=== PATIENT | male | born 1985 | race Caucasian/White ===

== ENCOUNTER 2020-12-08 19:45 | Emergency (ER) | payer OTHER ==
[2020-12-08] MEDS ORDERED: BACTRIM 400-801 EACH PO (20:33)
[2020-12-08] MEDS ORDERED: CEPHALEXIN500 MG PO (20:33)
== END 2020-12-08 20:35 | disposition home or self-care (01) ==
LOC: ER1 19:45
DX: L03.115 Cellulitis of right lower limb (principal)
CPT/HCPCS: 99283

== ENCOUNTER 2022-01-01 08:30 | Observation (INO) | payer OTHER ==
[~2022-01-01] VITALS: Ht 182.9 cm; Wt 70.5 kg
[~2022-01-01 08:30] MED LIST: BACTRIM 400-801 EACH PO; CEPHALEXIN500 MG PO
[2022-01-01 09:03] LABS: HEMOGLOBIN 15.4 gm/dl (14.0-17.5); RED BLOOD COUNT 5.25 M/UL (4.20-5.50); WHITE BLOOD COUNT 8.9 K/UL (4.5-11.0)
[2022-01-01 09:26] LABS: BUN/CREATININE RATIO 21 (0-10)
[2022-01-02 05:59] LABS: HEMOGLOBIN 15.8 gm/dl (14.0-17.5); RED BLOOD COUNT 5.41 M/UL (4.20-5.50); WHITE BLOOD COUNT 7.3 K/UL (4.5-11.0)
[2022-01-02 06:30] LABS: BUN/CREATININE RATIO 24 (0-10)
[2022-01-03] MEDS ORDERED: ISOSORBIDE MONO30 MG PO (19:16)
[2022-01-03] MEDS ORDERED: LOPRESSOR 25 MG25 MG PO (19:16)
[2022-01-03] MEDS ORDERED: ASPIRIN EC81 MG PO (19:16)
[2022-01-03] MEDS ORDERED: NICOTINE GUM2 MG PO (19:24)
[2022-01-05 21:07] LABS: HBSAG SCREEN Negative (Negative); HCV AB >11.0 (0.0-0.9); HCV LOG10 6.061 (.); HEP A AB, IGM Negative (Negative); HEP B CORE AB, IGM Negative (Negative); HEPATITIS C QUANTITATION 1150000 IU/mL (.)
== END 2022-01-03 20:02 ==
LOC: ER1 08:30 → CDU 12:02 → M/S 13:52
PROVIDERS: Emergency Medicine; Physician Assistant; ADMIT Internal Medicine
DX: R07.89 Other chest pain (principal); T43.621A Poisoning by amphetamines, accidental (unintentional), initial encounter; F15.10 Other stimulant abuse, uncomplicated; F19.10 Other psychoactive substance abuse, uncomplicated; F17.290 Nicotine dependence, other tobacco product, uncomplicated; N17.9 Acute kidney failure, unspecified; I25.10 Atherosclerotic heart disease of native coronary artery without angina pectoris; I34.0 Nonrheumatic mitral (valve) insufficiency; Z86.79 Personal history of other diseases of the circulatory system
CPT/HCPCS: 36415; 71045; 80053; 80074; 80307; 82550; 82553; 83735; 83880; 84439; 84443; 84484; 85025; 85652; 86140; 87040; 93005; 99285; G0378